=== PATIENT | female | born 1985 | race Caucasian/White ===

== ENCOUNTER 2018-09-04 09:17 | Emergency (ER) | payer MEDICARE, MEDICAID ==
[~2018-09-04] VITALS: Ht 167.6 cm; Wt 109.1 kg
--- NOTE | 2018-09-04 09:45 | NUR ---
Patient brought straight back to Bed 22 from Triage, accompanied by liquefierJohann Jacobs. Changed into green gowns. All belongings inventoried. Made comfortable in bed.
[2018-09-04 10:02] LABS: BASOPHILS # (AUTO) 0.1 X10'3 (0-0.2); BASOPHILS % (AUTO) 0.7 % (0-1); EOSINOPHILS # (AUTO) 0.2 X10'3 (0-0.9); EOSINOPHILS % (AUTO) 1.9 % (0-6); HEMOGLOBIN 14.5 g/dl (12.0-16.0); LYMPHOCYTES # (AUTO) 3.1 X10'3 (1.1-4.8); LYMPHOCYTES % (AUTO) 23.5 % (21-51); MEAN CORPUSCULAR HEMOGLOBIN 29.7 PG (27.0-31.0); MEAN CORPUSCULAR HGB CONC 33.8 g/dL (33.0-36.5); MEAN CORPUSCULAR VOLUME 87.7 FL (78-98); MEAN PLATELET VOLUME 7.9 FL (7.4-10.4); MONOCYTES # (AUTO) 1.1 X10'3 (0-0.9); MONOCYTES % (AUTO) 8.7 % (2-12); NEUTROPHILS # (AUTO) 8.5 X10'3 (1.8-7.7); NEUTROPHILS % (AUTO) 65.2 % (42-75); PLATELET COUNT 291 X10'3 (140-440); RED CELL DISTRIBUTION WIDTH 14.6 % (11.5-14.5)
[2018-09-04 10:03] LABS: CLARITY,URINE CLEAR (Clear); COLOR,URINE YELLOW (Yellow); GLUCOSE, URINE NEGATIVE (Neg); KETONES,URINE >=80 mg/dl (Neg); LEUKOCYTE ESTERASE ,URINE NEGATIVE (Neg); NITRITES, URINE NEGATIVE (Neg); OCCULT BLOOD,URINE LARGE (Neg); PH,URINE 5.5 (4.8-8.0); PROTEIN,URINE 30 mg/dl (Neg)
[2018-09-04 10:07] LABS: URINE HCG NEGATIVE (NEG)
[2018-09-04 10:11] LABS: UA COLLECTION TYPE CLN CATCH MIDSTREAM
[2018-09-04 10:13] LABS: RBC,URINE 20-50 /HPF (0-2); WBC,URINE 0-4 /HPF (0-4)
[2018-09-04 10:14] LABS: BACTERIA,URINE 1+ /HPF (Neg); MUCUS STRANDS NONE SEEN /LPF (Neg); SQUAMOUS EPITHELIAL CELL,UR MODERATE /LPF (FEW)
[2018-09-04 10:19] LABS: ALANINE AMINOTRANSFERASE 32 U/L (12-78); ALBUMIN 4.1 G/DL (3.4-5.0); ALBUMIN/GLOBULIN RATIO 1.1 (1.1-1.5); ALKALINE PHOSPHATASE 93 IU/L (46-116); ANION GAP 11 (8-16); ASPARTATE AMINO TRANSFERASE 20 U/L (10-37); BILIRUBIN,TOTAL 2.2 MG/DL (0.1-1.0); BLOOD UREA NITROGEN 14 MG/DL (7-18); CALCIUM 9.3 MG/DL (8.5-10.1); CHLORIDE 104 MMOL/L (99-107); ETHANOL < 0.010 GM/DL (0.0-0.010); GLUCOSE 70 MG/DL (70-104); POTASSIUM 3.6 MMOL/L (3.5-5.1); SODIUM 141 MMOL/L (135-145); TOTAL CARBON DIOXIDE 26.4 MMOL/L (24-32); eGFR > 90 ML/MIN
[2018-09-04 10:23] LABS: URINE AMPHETAMINE SCREEN POSITIVE (Neg); URINE BARBITUATE SCREEN NEGATIVE (Neg); URINE BENZODIAZEPINES SCREEN NEGATIVE (Neg); URINE CANNABINOID SCREEN POSITIVE (Neg); URINE COCAINE SCREEN NEGATIVE (Neg); URINE METHADONE SCREEN NEGATIVE (Neg); URINE OPIATE SCREEN NEGATIVE (Neg); URINE PHENCYCLIDINE SCREEN NEGATIVE (Neg)
[2018-09-04] MEDS ORDERED: diphenhydrAMINE 50 mg/ml inj IM ONE (12:10)
[2018-09-04] MEDS ORDERED: haloperidol lactate 5mg/ml inj IM ONE (12:10)
[2018-09-04] MEDS ORDERED: LORazepam 2 mg/ml vial IM ONE (12:10)
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
[2018-09-04] MEDS ORDERED: ibuprofen tablet 400 MG TABLET PO ONE (12:35)
--- NOTE | 2018-09-04 17:38 | NUR ---
Slept soundly throughout the afternoon. Dr. Boland here to speak with patient. Patient was cooperative for a few minutes then fell back to sleep.
--- NOTE | 2018-09-04 20:00 | NUR ---
patient ambulated to bathroom. demanded motrin "it's been forever I want it". pt fell asleep before RN could dose with motrin. snoring softly.
[2018-09-04] MEDS: ibuprofen tablet 400 MG TABLET PO PRN (21:50)
--- NOTE | 2018-09-04 22:00 | NUR ---
faxed packet to [facility]. updated pt health history while pt was awake. kept falling asleep. face sheet updated. pt is homeless. moved from [facility] 2 months ago, [facility] for 3 weeks. updated home med list - pt hasn't taken them in 2 months.
[2018-09-04] MEDS ORDERED: NAPR-56 PO (22:01)
[2018-09-04] MEDS ORDERED: GABA400C PO (22:01)
--- NOTE | 2018-09-05 06:04 | NUR ---
reported to day RN. pt resting w/o distress. awaiting [facility] eval.
[2018-09-05] MEDS ORDERED: quetiapine 100mg tablet PO SCH (08:23)
[2018-09-05] MEDS ORDERED: ziprasidone 20mg capsule PO SCH (08:39)
[2018-09-05] MEDS ORDERED: LORazepam 1 MG tablet PO ONE (08:40)
[2018-09-05] MEDS: ibuprofen tablet 400 MG TABLET PO PRN (11:06)
[2018-09-05 14:57] VITALS: BP 110/80
== END 2018-09-05 15:01 | disposition home or self-care (01) ==
LOC: ER 09:17
DX: R45.851 Suicidal ideations (principal); F15.10 Other stimulant abuse, uncomplicated; F17.200 Nicotine dependence, unspecified, uncomplicated; F12.90 Cannabis use, unspecified, uncomplicated; Z88.8 Allergy status to other drugs, medicaments and biological substances; Z88.1 Allergy status to other antibiotic agents
CPT/HCPCS: 36415; 80053; 80305; 80320; 81001; 81025; 84443; 85025; 96372; 99285; J1200; J1630; J2060